=== PATIENT | female | born 1965 | race Caucasian/White ===

== ENCOUNTER 2021-03-12 08:00 | Outpatient (CLI) | payer OTHER | END 2021-03-12 23:59 | LOC: LAB 08:00 | PROVIDERS: ATTEND Family Medicine | DX: R30.0 Dysuria (principal) | CPT/HCPCS: 87086; 87181 ==

== ENCOUNTER 2021-05-27 16:09 | Outpatient (CLI) | payer SELFPAY ==
--- NOTE | 2021-05-27 19:30 | XRAY Report ---
PROCEDURE: Lumbar Spine 2 View INDICATIONS: TRAUMA TO PRIOR SURGERY FUSION TECHNIQUE: 2 views of the lumbar spine were acquired. COMPARISON: None. FINDINGS: Bones: Vertebral body alignment is maintained. Normal bone mineralization. There is a L4-5 and L5-S1 discectomy and fusion with posterior bora and screw instrumentation. L3-4 disc space narrowing and hyp ertrophic facet joint noted. Soft tissues: Overlying bowel gas pattern is normal. No suspicious soft tissue calcifications. Jan gical clips present in the right upper quadrant IMPRESSION: L4-5 and L5-S1 discectomy and fusion with posterior bora and screw instrumentation in good position. N o evidence of hardware failure or loosening. Reviewed by: Vjiay Raphael MD on 05/27/2021 6:29 PM [place] Approved by: Vijay Raphael MD on 05/27/2021 6:29 PM [facility] Station ID: [id number]
== END 2021-05-27 16:10 | disposition home or self-care (01) ==
LOC: DI 16:09
PROVIDERS: ATTEND Student in an Organized Health Care Education/Training Program
DX: S39.92XA Unspecified injury of lower back, initial encounter (principal); Z98.1 Arthrodesis status

== ENCOUNTER 2021-06-12 18:14 | Emergency (ER) | payer OTHER ==
--- NOTE | 2021-06-12 18:57 | ED Physician Documentation ---
History of Present Illness - Stated complaint Stated Complaint: LEFT ARM NUMBNESS CHEST PAIN - Chief complaint Chief Complaint: Cardiac - Additonal information Additional information: 56-year-old female presents emergency department for evaluation of worsening left-sided chest pain and pressure. Reports that for a long time she has been having intermittent palpitations and at one point she was referred for Holter monitor though due to the pandemic concerns that did not get completed. Her last 24 hours she has been having more frequent palpitations with chest pain and pressure. She is also endorsing left arm numbness below the elbow. 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 Non-smoker. No history of hypertension. Review of Systems Constitutional: denies: Fever, Chills Throat: reports: Reviewed and negative Cardiac: reports: Chest pain / pressure, Palpitations. denies: Pedal edema, Calf pain Respiratory: denies: Dyspnea, Cough, Hemoptysis, Wheezing GI: reports: Reviewed and negative : reports: Reviewed and negative Skin: reports: Reviewed and negative Musculoskeletal: denies: Neck pain Neurologic: reports: Numbness (Left arm below the elbow) PD PAST MEDICAL HISTORY - Present Medications Home Medications: Ambulatory Orders Medication Instructions Recorded Confirmed Budesonide [Pulmicort] 0.5 mg IH 06/12/21 DULoxetine [Cymbalta] 30 mg PO DAILY 06/12/21 06/12/21 Pantoprazole [Protonix] 40 mg PO 06/12/21 tiZANidine [Zanaflex] 06/12/21 - Allergies Allergies/Adverse Reactions: Allergies Allergy/AdvReac Type Severity Reaction Status Date / Time almond Allergy Anaphylaxis Verified 06/12/21 18:27 coconut Allergy Anaphylaxis Verified 06/12/21 18:27 corn Allergy Anaphylaxis Verified 06/12/21 18:27 Penicillins Allergy Rash Verified 06/12/21 18:27 strawberry Allergy Anaphylaxis Verified 06/12/21 18:27 wheat Allergy Anaphylaxis Verified 06/12/21 18:27 codeine AdvReac Nausea Verified 06/12/21 18:27 PD ED PE EXPANDED - General General: Alert, No acute distress, Other (Obese) - Cardiac Cardiac: Regular Rate, Radial strong equal, Pedal strong equal, Cap refill < 2 sec. No: Murmur Present - Respiratory Respiratory: Clear to ausultation alexander. No: Distress, Labored - Abdomen Abdomen: Normal Bowel sounds. No: Tender to palpation - Derm Derm: Normal color, Warm and dry. No: Rash - Extremities Extremities: Normal. No: Deformity, Tenderness - Neuro Neuro: Alert and Oriented X 3, CNII-XII intact, Normal gait, Normal finger nose, Normal speech - GCS Eye Opening: Spontaneous Motor: Obeys Commands Verbal: Oriented Total: 15 Results - Vitals Vitals: Vital Signs - 24 hr 06/12/21 06/12/21 06/12/21 18:20 18:25 20:29 Temperature 36.4 C L 36.5 C Heart Rate 72 72 74 Respiratory 14 14 15 Rate Blood Pressure 143/71 H 143/71 H 121/63 O2 Saturation 97 97 98 Oxygen O2 Source Room air - EKG (time done) 1839 Rate: Rate (enter#) (73) Rhythm: NSR Lowpoint: Normal QRS: Low voltage Ischemia: Normal ST segments Compare to prior EKG: Old EKG unavailable Computer interpretation: Agree with computer - Labs Labs: Laboratory Tests 06/12/21 06/12/21 06/12/21 19:01 19:01 19:01 WBC 9.1 RBC 4.73 Hgb 12.9 Hct 39.3 MCV 83.1 MCH 27.3 MCHC 32.8 RDW 12.6 Plt Count 254 MPV 9.8 Neut # (Auto) 5.2 Lymph # (Auto) 2.7 [place] # (Auto) 0.8 Eos # (Auto) 0.3 Baso # (Auto) 0.1 Absolute Nucleated RBC 0.00 Nucleated RBC % 0.0 Sodium 135 Potassium 4.4 Chloride 100 L Carbon Dioxide 27 Anion Gap 8.0 BUN 18 Creatinine 0.8 Estimated GFR (MDRD) 74 L Glucose 101 H Calcium 9.7 Total Bilirubin 0.6 AST 21 ALT 12 Alkaline Phosphatase 52 Troponin I High Sens 3.3 Total Protein 6.8 Albumin 3.9 Globulin 2.9 Albumin/Globulin Ratio 1.3 Lipase 28 - Rads (name of study) cxr Radiology: Final report received (No acute cardiopulmonary process) PD MEDICAL DECISION MAKING - ED course Complexity details: reviewed results, re-evaluated patient, considered differential, d/w patient ED course: 56-year-old female presents emergency department for evaluation of chest pain and pressure that began this morning. She has a history of Ehler Danlos but no history of hypertension or tobacco use. She has reported that she often has palpitations. At one point around a year ago she was to obtain a Holter monitor but failed to follow through with this. No previous history of coronary artery disease. Screening chest x-ray without acute focal findings. EKG is sinus rhythm without ischemia. Screening labs are also unremarkable. Her heart score is 2. She should certainly be referred for outpatient stress test and echocardiogram as an outpatient. Emergent return precautions were discussed for worsening symptoms. Departure - Departure Disposition: Home, Self Care Clinical Impression: Left-sided chest pain, Arm numbness left Condition: Stable Record reviewed to determine appropriate education?: Yes Follow-Up: SASKIA PARRA PA [Primary Care Provider] - Comments: Nazanin you are seen today in the ER for some numbness in your left lower arm as well as left-sided chest pain and pressure. Your chest x-ray is normal. Your EKG is also normal for age. Your screening labs including blood count, blood chemistry and your troponin are all essentially normal. It is important that you discuss this ED visit with your primary care provider. Because you have been describing palpitations it is important that you get rereferred for a Holter monitor. But you should also get referred for a stress test and an echocardiogram as an outpatient. If at any point you have worsening symptoms, sudden severe chest pain or shortness of air then please return immediately to the ER for a second evaluation.
[2021-06-12 19:08] LABS: BASOPHILS # (AUTO) 0.1 10^3/uL (0.0-0.1); BASOPHILS % (AUTO) 1.2 %; EOSINOPHILS # (AUTO) 0.3 10^3/uL (0.0-0.7); EOSINOPHILS % (AUTO) 2.7 %; HCT - HEMATOCRIT 39.3 % (37.0-47.0); HGB - HEMOGLOBIN 12.9 g/dL (12.0-16.0); LYMPHOCYTES # (AUTO) 2.7 10^3/uL (1.5-3.5); LYMPHOCYTES % (AUTO) 29.9 %; MEAN CORPUSCULAR HEMOGLOBIN 27.3 pg (27.0-31.0); MEAN CORPUSCULAR HGB CONC 32.8 g/dL (32.0-36.0); MEAN CORPUSCULAR VOLUME 83.1 fL (81.0-99.0); MEAN PLATELET VOLUME 9.8 fL (7.9-10.8); MONOCYTES # (AUTO) 0.8 10^3/uL (0.0-1.0); NEUTROPHILS # (AUTO) 5.2 10^3/uL (1.5-6.6); NEUTROPHILS % (AUTO) 56.7 %; PLT - PLATELET COUNT 254 10^3/uL (130-450); RED BLOOD COUNT 4.73 10^6/uL (4.20-5.40); RED CELL DISTRIBUTION WIDTH 12.6 % (12.0-15.0); WHITE BLOOD COUNT 9.1 x10^3/uL (4.8-10.8)
[2021-06-12 19:30] LABS: ALBUMIN 3.9 g/dL (3.2-5.5); ALBUMIN/GLOBULIN RATIO 1.3 (1.0-2.2); BILIRUBIN,TOTAL 0.6 mg/dL (0.2-1.0); CALCIUM 9.7 mg/dL (8.5-10.3); CREATININE 0.8 mg/dL (0.4-1.0); POTASSIUM 4.4 mmol/L (3.5-5.0); TOTAL PROTEIN 6.8 g/dL (6.7-8.2)
--- OUTSIDE RECORDS SUMMARY | 2021-06-12 19:41 | EXTERNAL MEDICAL SUMMARY RPT | Continuity of Care Document ---
:1965 Author Organization [facility] Address [address] [place] [address] Phone Care Team Providers Name Role Phone Franci HERNANDEZ Unavailable Unavailable Allergies No information. Encounters No information. Medications date description facility [id number] fluconazole All Problems Results No information.
--- NOTE | 2021-06-12 19:57 | XRAY Report ---
PROCEDURE: Chest 1 View X-Ray INDICATIONS: Chest Pain TECHNIQUE: One view of the chest was acquired. COMPARISON: None FINDINGS: Surgical changes and devices: None. Lungs and pleura: No pleural effusions or pneumothorax. Lungs are clear. Mediastinum: Mediastinal contours appear normal. Heart size is normal. Bones and chest wall: No suspicious bony lesions. Overlying soft tissues appear unremarkable. IMPRESSION: No acute cardiopulmonary disease process. Reviewed by: Jerrica Luke MD, PhD on 06/12/2021 7:55 PM PDT Approved by: Jerrica Luke MD, PhD on 06/12/2021 7:55 PM PDT Station ID: [id number]
[2021-06-12 20:32] VITALS: BP 121/63
== END 2021-06-12 20:33 | disposition home or self-care (01) ==
LOC: ED 18:14
DX: R07.89 Other chest pain (principal); R20.0 Anesthesia of skin
CPT/HCPCS: 36415; 80053; 83690; 84484; 85025; 93005; 99284

== ENCOUNTER 2021-08-12 16:34 | Outpatient (CLI) | payer OTHER ==
--- NOTE | 2021-08-13 09:54 | XRAY Report ---
PROCEDURE: Hip w/Pelvis 2-3V RT INDICATIONS: RIGHT HIP PAIN TECHNIQUE: AP pelvis with lateral view(s) of the right hip(s). COMPARISON: None. FINDINGS: Bones: No fractures or dislocations. Pelvic ring appears intact. No suspicious bony lesions. Part ially imaged lower lumbar fixation hardware. Soft tissues: The visualized bowel gas pattern is normal. No suspicious soft tissue calcifications. IMPRESSION: Intact pelvis and right hip. Reviewed by: Zelda Tubbs MD on 08/13/2021 9:52 AM PDT Approved by: Zelda Tubbs MD on 08/13/2021 9:52 AM PDT Station ID: [id number]
== END 2021-08-12 16:35 | disposition home or self-care (01) ==
LOC: DI 16:34
PROVIDERS: ATTEND Internal Medicine
DX: M25.551 Pain in right hip (principal)

== ENCOUNTER 2021-09-28 21:42 | Emergency (ER) | payer OTHER ==
--- NOTE | 2021-09-28 22:54 | ED Physician Documentation ---
History of Present Illness - Stated complaint Stated Complaint: MUSCLES SPASMS,NAUSEA - Chief complaint Chief Complaint: General - History obtained from History obtained from: Patient - History of Present Illness Timing: Today Pain level now: 5 Improved by: no ameliorating factors Worsened by: no exacerbating factors - Additonal information Additional information: c/o generalized muscle spasms and myalgias, gradual onset this afternoon. She says she thinks she is dehydrated due to not drinking enough fluids today. nausea but no vomiting. mild diarrhea. Patient says she has had similar symptoms in the past which was attributed to gastroparesis, possibly associated with Toi-Danlos syndrome. She says she had standing orders at an ED or outpatient clinic in [place] (where she had been living) for IV fluids for these symptoms, but that it has been several years since her last episode. Review of Systems Constitutional: reports: Reviewed and negative Cardiac: reports: Reviewed and negative Respiratory: reports: Reviewed and negative GI: reports: Abdominal Pain, Nausea, Diarrhea. denies: Abdominal Swelling, Vomiting, Constipation : denies: Dysuria, Frequency PD PAST MEDICAL HISTORY - Past Medical History Past Medical History: Yes Other Past Medical History: toi-danlos - Present Medications Home Medications: Ambulatory Orders Medication Instructions Recorded Confirmed Budesonide [Pulmicort] 0.5 mg IH 06/12/21 DULoxetine [Cymbalta] 30 mg PO DAILY 06/12/21 06/12/21 Pantoprazole [Protonix] 40 mg PO 06/12/21 tiZANidine [Zanaflex] 06/12/21 Metoclopramide [Reglan] 10 mg PO Q6H PRN #20 tablet 09/29/21 - Allergies Allergies/Adverse Reactions: Allergies Allergy/AdvReac Type Severity Reaction Status Date / Time almond Allergy Anaphylaxis Verified 09/28/21 21:47 coconut Allergy Anaphylaxis Verified 09/28/21 21:47 corn Allergy Anaphylaxis Verified 09/28/21 21:47 Penicillins Allergy Rash Verified 09/28/21 21:47 strawberry Allergy Anaphylaxis Verified 09/28/21 21:47 wheat Allergy Anaphylaxis Verified 09/28/21 21:47 codeine AdvReac Nausea Verified 09/28/21 21:47 - Living Situation Living Arrangement: reports: At home PD ED PE NORMAL - Vitals Vital signs reviewed: Yes - General General: Alert and oriented X 3, Well developed/nourished, Other (appears to be in mild painful discomfort) - Neck Neck: Supple, no meningeal sign - Cardiac Cardiac: RRR, No murmur - Respiratory Respiratory: No respiratory distress, Clear bilaterally - Abdomen Abdomen: Normal bowel sounds, Soft, Non tender, Non distended - Derm Derm: Normal color, Warm and dry Results - Vitals Vitals: Oxygen O2 Source Room air - Labs Labs: Laboratory Tests 09/28/21 09/28/21 23:30 23:30 WBC 9.6 RBC 5.04 Hgb 14.0 Hct 43.0 MCV 85.3 MCH 27.8 MCHC 32.6 RDW 13.1 Plt Count 282 MPV 9.7 Neut # (Auto) 5.3 Lymph # (Auto) 2.9 [place] # (Auto) 1.0 Eos # (Auto) 0.3 Baso # (Auto) 0.1 Absolute Nucleated RBC 0.00 Nucleated RBC % 0.0 Sodium 137 Potassium 4.1 Chloride 100 L Carbon Dioxide 30 Anion Gap 7.0 BUN 16 Creatinine 0.8 Estimated GFR (MDRD) 74 L Glucose 103 H Calcium 10.2 Total Bilirubin 0.4 AST 25 ALT 13 Alkaline Phosphatase 65 Total Protein 7.5 Albumin 4.2 Globulin 3.3 Albumin/Globulin Ratio 1.3 Lipase 31 PD MEDICAL DECISION MAKING - ED course Complexity details: reviewed results, re-evaluated patient, considered differential, d/w patient Departure - Departure Disposition: 01 Home, Self Care Clinical Impression: Nausea & vomiting Condition: Good Instructions: ED Nausea Vomiting Follow-Up: SASKIA PARRA PA [Primary Care Provider] - Prescriptions: Metoclopramide [Reglan] 10 mg PO Q6H PRN #20 tablet PRN Reason: Nausea / Vomiting Comments: The cause of your symptoms is not apparent at this time; the results of tonight's tests are unremarkable. Follow up with your primary care provider in 2-3 days if the symptoms have not resolved. Discharge Date/Time: 09/29/21 02:30
[2021-09-28] MEDS ORDERED: SODIUM CHLORIDE 0.9% 1,000 ML IV STA (23:04)
[2021-09-28 23:46] LABS: BASOPHILS # (AUTO) 0.1 10^3/uL (0.0-0.1); BASOPHILS % (AUTO) 1.4 %; EOSINOPHILS # (AUTO) 0.3 10^3/uL (0.0-0.7); EOSINOPHILS % (AUTO) 2.8 %; LYMPHOCYTES # (AUTO) 2.9 10^3/uL (1.5-3.5); LYMPHOCYTES % (AUTO) 29.9 %; MEAN CORPUSCULAR HEMOGLOBIN 27.8 pg (27.0-31.0); MEAN CORPUSCULAR HGB CONC 32.6 g/dL (32.0-36.0); MEAN CORPUSCULAR VOLUME 85.3 fL (81.0-99.0); MEAN PLATELET VOLUME 9.7 fL (7.9-10.8); MONOCYTES % (AUTO) 10.4 %; NEUTROPHILS # (AUTO) 5.3 10^3/uL (1.5-6.6); NEUTROPHILS % (AUTO) 55.2 %; PLT - PLATELET COUNT 282 10^3/uL (130-450); RED BLOOD COUNT 5.04 10^6/uL (4.20-5.40); RED CELL DISTRIBUTION WIDTH 13.1 % (12.0-15.0); WHITE BLOOD COUNT 9.6 x10^3/uL (4.8-10.8)
[2021-09-28 23:55] LABS: ALBUMIN 4.2 g/dL (3.2-5.5); ALBUMIN/GLOBULIN RATIO 1.3 (1.0-2.2); BILIRUBIN,TOTAL 0.4 mg/dL (0.2-1.0); CALCIUM 10.2 mg/dL (8.5-10.3); CREATININE 0.8 mg/dL (0.4-1.0); POTASSIUM 4.1 mmol/L (3.5-5.0); TOTAL PROTEIN 7.5 g/dL (6.7-8.2)
[2021-09-29] MEDS ORDERED: ONDANSETRON 4 MG/2 ML VIAL IVP STA (00:04)
[2021-09-29] MEDS ORDERED: SODIUM CHLORIDE 0.9% 1,000 ML IV STA (00:36)
[2021-09-29] MEDS ORDERED: METOCLOPRAMIDE 10 MG/2 ML VIAL IVP STA (01:25)
[2021-09-29 02:07] VITALS: BP 155/79
== END 2021-09-29 02:30 | disposition home or self-care (01) ==
LOC: ED 21:42
DX: R11.2 Nausea with vomiting, unspecified (principal)
CPT/HCPCS: 36415; 80053; 83690; 85025; 96361; 96374; 96375; 99282; 99283; J2765

== ENCOUNTER 2021-10-21 08:00 | Outpatient (CLI) | payer OTHER | END 2021-10-21 23:59 | disposition home or self-care (01) | LOC: LAB.N 08:00 | PROVIDERS: ATTEND Physician Assistant Medical | DX: R30.0 Dysuria (principal) | CPT/HCPCS: 87086 ==

== ENCOUNTER 2021-12-02 08:00 | Outpatient (CLI) | payer OTHER ==
--- NOTE | 2021-12-03 08:20 | XRAY Report ---
PROCEDURE: Elbow 3 View RT INDICATIONS: ELBOW PAIN TECHNIQUE: 3 views of the elbow were acquired. COMPARISON: Elbow radiographs 10/31/2021 FINDINGS: Bones: Similar alignment of the previously demonstrated mildly displaced radial head fracture. No def inite bony callus visualized. No definite new fracture. Soft tissues: Previous elbow joint effusion is decreased or resolved. No suspicious soft tissue calc ifications. IMPRESSION: Similar alignment of the previously demonstrated mildly displaced radial head fracture. Reviewed by: Harry Riggs MD on 12/03/2021 8:19 AM PDT Approved by: Harry Riggs MD on 12/03/2021 8:19 AM PDT Station ID: [id number]
== END 2021-12-02 23:59 | disposition home or self-care (01) ==
LOC: DI.WOS 08:00
PROVIDERS: ATTEND Physician Assistant Surgical
DX: S52.121D Displaced fracture of head of right radius, subsequent encounter for closed fracture with routine healing (principal)

== ENCOUNTER 2021-12-27 08:00 | Outpatient (CLI) | payer OTHER | END 2021-12-27 23:59 | disposition home or self-care (01) | LOC: LAB.N 08:00 | PROVIDERS: ATTEND Nurse Practitioner | DX: N39.0 Urinary tract infection, site not specified (principal) | CPT/HCPCS: 87077; 87086; 87181 ==

== ENCOUNTER 2021-12-30 08:00 | Outpatient (CLI) | payer OTHER ==
--- NOTE | 2021-12-30 18:01 | XRAY Report ---
PROCEDURE: Elbow 3 View RT INDICATIONS: RIGHT ELBOW FRACTURE TECHNIQUE: 3 views of the elbow were acquired. COMPARISON: Views of the elbow dated 12/02/2021. FINDINGS: Bones: Intra-articular radial head fracture is redemonstrated. Fracture fragments are in unchanged an atomic alignment. No callus is yet visualized. Soft tissues: No elbow joint effusion. No suspicious soft tissue calcifications. IMPRESSION: Stable radial head fracture. Reviewed by: Argelia Bearden MD on 12/30/2021 5:59 PM PDT Approved by: Argelia Bearden MD on 12/30/2021 5:59 PM PDT Station ID: [id number]
== END 2021-12-30 23:59 | disposition home or self-care (01) ==
LOC: DI.WOS 08:00
PROVIDERS: ATTEND Physician Assistant Surgical
DX: S52.124D Nondisplaced fracture of head of right radius, subsequent encounter for closed fracture with routine healing (principal)

== ENCOUNTER 2022-03-16 13:07 | Outpatient (CLI) | payer OTHER ==
--- NOTE | 2022-03-17 10:45 | Mammography Report ---
BILATERAL DIGITAL SCREENING MAMMOGRAM 3D/2D: 03/16/2022 CLINICAL: Routine screening. Comparison is made to exam dated: 07/06/2020 mammogram - [place]. There are scattered areas of fibroglandular density in both breasts (category b / 25%-50% glandular t issue). No significant masses, calcifications, or other findings are seen in either breast. There has been no significant interval change. IMPRESSION: NEGATIVE There is no mammographic evidence of malignancy. A 1 year screening mammogram is recommended. Based on the Tyrer Cuzick model (a risk assessment model) the patients lifetime risk is 7.3% and her 10 year risk is 2.7%. According to the ACR, ACS, and NCCN guidelines, an annual breast MRI exam edgar g with mammogram is recommended if the patients lifetime risk is 20% or greater. This exam was interpreted at Station ID: [id number]. NOTE: For mammograms, a report in lay terms will be sent to the patient. Approximately 15% of breast malignancies will not be visualized mammographically. In the management of a palpable breast mass, a negative mammogram must not discourage biopsy of a clinically suspicious lesion. Electronically Signed By: Yaron Saucedo M.D. acr/penrad:03/16/2022 17:16:24 ACR BI-RADS Category 1: Negative 3341F PARENCHYMAL PATTERN: (A) - The breast(s) demonstrate(s) scattered fibroglandular densities. BI-RADS CATEGORY: (1) - 1 RECOMMENDATION: (ANNUAL) - Recommend routine annual screening mammography. [id number] 1 year screening LATERALITY: (B)
== END 2022-03-16 13:08 | disposition home or self-care (01) ==
LOC: DI 13:07
PROVIDERS: ATTEND Internal Medicine
DX: Z12.31 Encounter for screening mammogram for malignant neoplasm of breast (principal)

== ENCOUNTER 2022-05-04 12:45 | Outpatient (CLI) | payer OTHER ==
--- NOTE | 2022-05-04 16:08 | XRAY Report ---
PROCEDURE: Shoulder 3 View RT INDICATIONS: RIGHT SHOULDER PAIN TECHNIQUE: 4 views of the shoulder were acquired. COMPARISON: None. FINDINGS: Bones: No fractures or dislocations. No suspicious bony lesions. Mild degenerative joint disease i n acromioclavicular and glenohumeral joint. Visualized ribs appear intact. Soft tissues: No suspicious soft tissue calcifications. IMPRESSION: Mild degenerative joint disease. Reviewed by: Cesar Burt MD on 05/04/2022 4:07 PM [facility] Approved by: Cesar Burt MD on 05/04/2022 4:07 PM [facility] Station ID: [id number]
== END 2022-05-04 12:46 | disposition home or self-care (01) ==
LOC: DI.WOS 12:45
PROVIDERS: ATTEND Orthopaedic Surgery
DX: M19.011 Primary osteoarthritis, right shoulder (principal)

== ENCOUNTER 2022-08-20 16:07 | Outpatient (CLI) | payer OTHER ==
[2022-08-20 16:23] LABS: CALCIUM, IONIZED 1.26 mmol/L (1.15-1.33); VBG PH 7.322 (7.31-7.41)
[2022-08-20 16:52] LABS: THYROID STIMULATING HORMONE 1.77 uIU/mL (0.34-5.60)
== END 2022-08-20 16:08 | disposition home or self-care (01) ==
LOC: LAB 16:07
PROVIDERS: ATTEND Internal Medicine
DX: E83.52 Hypercalcemia (principal); F32.A Depression, unspecified; R53.83 Other fatigue; M79.7 Fibromyalgia; R63.5 Abnormal weight gain; Z86.39 Personal history of other endocrine, nutritional and metabolic disease
CPT/HCPCS: 36415; 82330; 82607; 83970; 84443; 86376

== ENCOUNTER 2022-10-22 16:41 | Outpatient (CLI) | payer OTHER ==
--- NOTE | 2022-10-23 17:03 | XRAY Report ---
PROCEDURE: Chest 2 View X-Ray INDICATIONS: DYSPNEA TECHNIQUE: 2 views of the chest were acquired. COMPARISON: Chest x-ray 06/12/2021 FINDINGS: Surgical changes and devices: Cholecystectomy clips and partially visualized thoracolumbar fixation rods. Lungs and pleura: No pleural effusions or pneumothorax. Lungs are clear. Mediastinum: Mediastinal contours appear normal. Heart size is normal. Bones and chest wall: No suspicious bony lesions. Overlying soft tissues appear unremarkable. IMPRESSION: No acute cardiopulmonary process. Reviewed by: Denise Xiong MD on 10/23/2022 5:01 PM PDT Approved by: Denise Xiong MD on 10/23/2022 5:01 PM PDT Station ID: [id number]
== END 2022-10-22 16:42 | disposition home or self-care (01) ==
LOC: DI 16:41
PROVIDERS: ATTEND Internal Medicine
DX: R06.00 Dyspnea, unspecified (principal)

== ENCOUNTER 2022-11-03 16:16 | Outpatient (CLI) | payer OTHER | END 2022-11-03 16:17 | disposition home or self-care (01) | LOC: RT 16:16 | PROVIDERS: ATTEND Internal Medicine | DX: R06.00 Dyspnea, unspecified (principal) | CPT/HCPCS: 94060 ==

== ENCOUNTER 2023-09-22 10:26 | Outpatient (CLI) | payer OTHER ==
--- NOTE | 2023-09-23 08:42 | Mammography Report ---
BILATERAL DIGITAL SCREENING MAMMOGRAM 3D/2D: 09/22/2023 CLINICAL: Routine screening. Comparison is made to exams dated: 03/16/2022 mammogram - [facility] and 07/06/2020 mammogram - [place]. There are scattered areas of fibroglandular density in both breasts (category b / 25%-50% glandular t issue). No significant masses, calcifications, or other findings are seen in either breast. There has been no significant interval change. IMPRESSION: NEGATIVE There is no mammographic evidence of malignancy. A 1 year screening mammogram is recommended. Based on the Tyrer Cuzick model (a risk assessment model) the patient's lifetime risk is 7.0% and her 10 year risk is 2.8%. According to the ACR, ACS, and NCCN guidelines, an annual breast MRI exam edgar g with mammogram is recommended if the patient's lifetime risk is 20% or greater. This exam was interpreted at Station ID: [id number]. NOTE: For mammograms, a report in lay terms will be sent to the patient. Approximately 15% of breast malignancies will not be visualized mammographically. In the management of a palpable breast mass, a negative mammogram must not discourage biopsy of a clinically suspicious lesion. Electronically Signed By: Refugio kowalski/omar:09/22/2023 11:37:42 letter sent: No_Letter ACR BI-RADS Category 1: Negative 3341F PARENCHYMAL PATTERN: (A) - The breast(s) demonstrate(s) scattered fibroglandular densities. BI-RADS CATEGORY: (1) - 1 RECOMMENDATION: (ANNUAL) - Recommend routine annual screening mammography. [id number] 1 year screening LATERALITY: (B)
== END 2023-09-22 10:27 | disposition home or self-care (01) ==
LOC: DI.N 10:26
PROVIDERS: ATTEND Internal Medicine
DX: Z12.31 Encounter for screening mammogram for malignant neoplasm of breast (principal); R92.323 Mammographic fibroglandular density, bilateral breasts

== ENCOUNTER 2023-10-04 09:51 | Outpatient (CLI) | payer OTHER ==
--- NOTE | 2023-10-04 20:29 | SLEEP CARE CONSULTATION ---
Information from patient questionnaire entered by Susi Henry. I have reviewed and concur with the information entered by Susi Henry. This document represents the service I personally performed and the decisions made by me, Santi Fuentes MD, [facility]. History of Present Illness Service Date and Time: 10/04/2023 0951 Reason for Visit: New patient Chief Complaint: reports: Unrefreshed sleep, Excessive daytime sleepiness Date of Onset: 20YRS Usual bedtime: 0365-9926 Time it takes to fall asleep: 30-45MINS Snores at night: No Observed to quit breathing while asleep: No Sleeps alone due to snoring: No Number of times waking at night: 1-2 Reasons for waking at night: reports: Bathroom, Other (NOISE) Toss, Turn, or Twitch while sleeping: No Recalls having dreams: Yes Usually gets out of bed at: [id number] Feels refreshed in the morning: No Morning headache: Yes Sleepy or fatigued during the day: Yes Ever fallen asleep while driving: No Takes day naps: No Prior sleep studies: No Additional HPI information: I have the pleasure of seeing Ms. Martinez today regarding the possibility of her having obstructive sleep apnea. As you know, she is a 58-year-old lady who complains of unrefreshed sleep, persistent fatigue, and excessive daytime sleepiness for about 20 years. She said she had a sleep study about 20 years ago that was negative. She had an overnight pulse oximetry about 4 years ago that showed oxygen saturation dropping down into an abnormal level. The patient tells me that she normally goes to bed around 11 pm - midnight, and it takes her approximately 30 - 45 minutes to fall asleep. She has not been told that she snores loudly or irregularly at night. She has never been observed to stop breathing in her sleep. Her sleeps in the same bed. She can recall waking up on the average of 1 - 2 times during the night. Most of the time she wakes up because of having to use the bathroom. She has never awakened because of her own snoring, choking, or having to gasp for air. There is not a lot of tossing and turning in her sleep. No somniloquy (sleep talking) or somnambulism (sleep walking). Generally, she can recall having dreams. In the morning she usually gets up out of the bed around 6 - 7 a.m. not feeling refreshed nor rested. She usually does have a morning headache. During the day she complains of feeling sleepy and fatigued. Her score on [place] Sleepiness Scale is 16 out of 24. She never has fallen asleep while driving nor has had any accident due to sleepiness. She usually does not take naps during the day. Upon falling asleep during the day she reports having dreams, but only the naps are long. She has never had sleep paralysis, experienced cataplexy or symptoms of restless leg syndrome. She reports having impaired concentration during the day. - Parasomnia Symptoms Ever been unable to move upon waking from sleep: No Walks in sleep: No Talks in sleep: No Ever acted out dreams in sleep: No Ever felt weak in the knees when startled or emotional: Yes Bothered by creepy, crawly, restless sensations in legs: No Problems with memory or concentration: Yes Subjective Initial [place] Sleepiness Scale score: 16 (09/29/23) Past Medical History Past Medical History: reports: Arthritis, Insulin resistance, Fibromyalgia, Anxiety, Asthma, Depression, GERD, Attention deficit Social History The patient's occupation is a [employer]. Patient is and lives in . Have you smoked in the past 12 months: No Alcohol use: No Caffeine use: Yes Caffeine amount and frequency: 1 16OZ 3-4X WEEK Family History Family history of sleep disordered breathing: No Allergies and Home Medications Known drug allergies: Yes ( LISTED) Drug allergies reviewed: Yes Home medication list reviewed: Yes Allergy and home medication list: Allergies almond Allergy (Verified 09/28/23 07:48) Anaphylaxis coconut Allergy (Verified 09/28/23 07:48) Anaphylaxis corn Allergy (Verified 09/28/23 07:48) Anaphylaxis Penicillins Allergy (Verified 09/28/23 07:48) Rash strawberry Allergy (Verified 09/28/23 07:48) Anaphylaxis wheat Allergy (Verified 09/28/23 07:48) Anaphylaxis codeine Adverse Reaction (Verified 09/28/23 07:48) Nausea Review of Systems Weight gain over past 5 years: 25 Weight loss over past 5 years: 30 Cardiovascular: denies: high blood pressure, palpitations, chest pain, irregular heart rate or pulse, leg or foot swelling, have to sleep sitting up, other Respiratory: reports: shortness of breath, wheeze Gastrointestinal: reports: heartburn. denies: difficulty swallowing, nausea, vomitting, diarrhea, abdominal pain, other Urinary: denies: incontinence, frequency, urgency, impotence, other Neurological: reports: head trauma, gait or balance problems Psychiatric: reports: Attention Deficit Hyperactivity, anxiety, depression, chato strophobia Ear/Nose/Throat: reports: nasal congestion, sinus problems, injury to nose, tonsillectomy, wisdom teeth removed Endocrine: reports: sluggishness, too hot or cold Musculoskeletal: reports: joint pain, neck pain, back pain, muscle pain or cramping Immunologic: reports: allergies to food or environment Physical Exam Vital signs obtained and entered by: SUSI Gamboa MA Blood Pressure: 161/84 (RIGHT ARM) Cuff size: long Heart Rate: 80 O2 Saturation: 99 Height: 5 ft 8 in Weight: 249 lb Body Mass Index: 37.8 BMI Classification: Obese Neck circumference: 14 Mood/affect: normal HEENT: No craniofacial malformation Nostrils: patent to airflow Turbinates: normal Septum: midline Mouth and throat: narrow oropharynx Soft palate: long Hard palate: normal Uvula: normal Tongue: normal in size Tonsils: small Chin and jaw: normal size and position Neck: normal w/o lymphadenopathy or thyromegaly Heart: regular rate and rhythm Lungs: clear bilaterally Extremities: no edema or clubbing Neurologic: intact Impression and Plan IMPRESSION: 1. Fatigue and hypersomnia, despite adequate night sleep. Therefore, sleep disrupting conditions should be ruled out. The patient does have several other factors that could be responsible for her fatigue. Narrow oropharynx and obesity are common predisposing factors for obstructive sleep apnea-hypopnea syndrome. I recommend proceeding to polysomnography to confirm the diagnosis and to assess severity. I informed the patient of what the sleep studies involve and after some discussion, she agreed to proceed. Plan: 1. Schedule polysomnography and return in 1 to 2 weeks after the study to discuss result and initiate therapy. 2. Avoid long distance driving or when feeling sleepy. 3. Attempt to lose weight. Counseling Topics: Weight control Follow up with Sleep Care in: 1-2 months Visit Type: In Office Time Spent with Patient (minutes): 15 Provider Statement: I spent 100% of the Face to Face Visit with the patient with greater than 50% spent counseling the patient and coordination of care.
[2023-10-04 20:35] VITALS: BP 161/84; O2SAT 99
== END 2023-10-04 09:52 | disposition home or self-care (01) ==
LOC: SC 09:51
PROVIDERS: ATTEND Internal Medicine Pulmonary Disease
DX: G47.10 Hypersomnia, unspecified (principal); G47.8 Other sleep disorders; R53.83 Other fatigue; E66.9 Obesity, unspecified; Z68.37 Body mass index [BMI] 37.0-37.9, adult; F51.04 Psychophysiologic insomnia; R41.89 Other symptoms and signs involving cognitive functions and awareness; F32.A Depression, unspecified
CPT/HCPCS: 99202; 99212

== ENCOUNTER 2023-10-11 13:04 | Outpatient (CLI) | payer OTHER ==
[2023-10-11 19:14] LABS: CLARITY,URINE CLOUDY (CLEAR)
[2023-10-11 20:25] LABS: BACTERIA,URINE Many /HPF (None Seen); SQUAMOUS EPITHELIAL CELL,UR NONE SEEN (<= Few); WBC,URINE >25 /HPF (0-5)
== END 2023-10-11 13:05 | disposition home or self-care (01) ==
LOC: LAB.N 13:04
PROVIDERS: ATTEND Internal Medicine
DX: R39.9 Unspecified symptoms and signs involving the genitourinary system (principal)
CPT/HCPCS: 81001; 81003; 87086

== ENCOUNTER 2023-11-10 20:32 | Outpatient (CLI) | payer OTHER | END 2023-11-10 20:33 | disposition home or self-care (01) | LOC: SC 20:32 | PROVIDERS: ATTEND Internal Medicine Pulmonary Disease | DX: G47.33 Obstructive sleep apnea (adult) (pediatric) (principal); E66.9 Obesity, unspecified; Z68.37 Body mass index [BMI] 37.0-37.9, adult | CPT/HCPCS: 95810 ==

== ENCOUNTER 2023-11-19 11:09 | Outpatient (CLI) | payer OTHER ==
--- NOTE | 2023-11-19 11:46 | Sleep Patient Instructions ---
Sleep Center Visit Summary - Patient Visit Information Reason for Visit: Sleep study follow-up - Patient Instructions Instructions Attached: CPAP Additional Instructions: You are being started on CPAP therapy with pressure setting at 4-15 cmH2O. You will need to call the sleep care office to set up your follow up once you have your CPAP machine to check compliance and response to therapy at that time. You may call the office with any concerns about pressure feeling too low or too much for adjustment, if needed. You should contact DME supplier for any questions or concerns about mask or equipment. Please call office to schedule a follow up appointment in the sleep care office one month after obtaining new device. - Clinic Information Contact: [facility] [address] [place] [address] [email or web address] T: [phone]
--- NOTE | 2023-11-19 11:48 | SLEEP CARE CONSULTATION ---
Information from patient questionnaire entered by Susi Henry. I have reviewed and concur with the information entered by Susi Henry. This document represents the service I personally performed and the decisions made by me, Sonali Brown ARNP. History of Present Illness Service Date and Time: 11/19/2023 1109 Accompanied by: Spouse (Zak) Initial [place] Sleepiness Scale score: 16 Current [place] Sleepiness Scale score: 16 (11/19/23) Additional HPI information: LISA DALLAS returns with spouse for follow up and results of the recently performed polysomnography. The sleep study done on 11/10/2023 showed moderate obstructive sleep apnea with an average AHI of 20.4 and argenis oxygen saturation of 81%. I explained the pathophysiology behind obstructive sleep apnea. We then spent quite a bit of time discussing different treatment options. For mild obstructive sleep apnea, surgery and oral appliance are alternatives to nasal CPAP therapy but in moderate or severe cases, nasal CPAP is the most effective and reliable treatment. I reviewed the impact of weight changes on sleep apnea and strongly recommended losing weight. After some discussion, the patient opted to go with the nasal CPAP therapy. Nasal autoCPAP set at 4-15 cmH20 will be ordered with rationale explained. A manual titration study will be ordered if unable to find optimal pressure with office adjustments. I explained how CPAP machine works and what to expect when using the machine. Using CPAP every night in order to get used to it was emphasized. Patient advised to put CPAP mask on before getting into bed so as not to fall asleep without CPAP. To assist acclimation to CPAP use, it could also be used for a short time during day while reading or watching TV. The patient was instructed to call the CPAP supplier to discuss any mechanical problem that may occur. If the mask given is uncomfortable or is difficult to keep on through the night even with adjustment, contact the CPAP supplier as many will replace with another mask style if notified before 30 days. If snoring or perceives is not getting enough air or too much air from the machine, notify this office. Patient does not drink alcohol. Patient was cautioned about risks of drowsy driving until sleepiness symptoms resolve. Sleep Study - Results Type of Sleep Study: Polysomnography (COMPLETED 11/10/23) Prior sleep studies: No Polysomnography/Home Sleep Study results: IMPRESSION: The quality of the study is good. The patient had reduced sleep efficiency due to frequent awakenings in the first half of the night. The sleep architecture was abnormal for sleep fragmentation and reduced amount of time spent in REM sleep. Respiratory monitoring showed moderate obstructive sleep apnea-hypopnea (AHI = 20.4) associated with frequent arousals, oxyhemoglobin desaturation and mild hypoxia (argenis oxygen saturation of 82%). The patient slept mostly supine (supine AHI = 17.2; non- supine = 65.59). Snore was light to loud in intensity. There was no significant periodic leg movement of sleep. Cardiac rhythm was normal sinus rhythm with occasional sinus tachycardia (maximum heart rate during sleep = 107). No abnormal behavior (parasomnia) observed during the night. Allergies and Home Medications Known drug allergies: Yes (as listed) Drug allergies reviewed: Yes Home medication list reviewed: Yes (no changes) Allergy and home medication list: Allergies almond Allergy (Verified 11/19/23 11:10) Anaphylaxis coconut Allergy (Verified 11/19/23 11:10) Anaphylaxis corn Allergy (Verified 11/19/23 11:10) Anaphylaxis Penicillins Allergy (Verified 11/19/23 11:10) Rash strawberry Allergy (Verified 11/19/23 11:10) Anaphylaxis wheat Allergy (Verified 11/19/23 11:10) Anaphylaxis codeine Adverse Reaction (Verified 11/19/23 11:10) Nausea Review of Systems Review of systems same as previous: Yes (NO CHANGE) Physical Exam Vital signs obtained and entered by: SUSI Gamboa MA Blood Pressure: 142/86 (LEFT ARM) Cuff size: long Heart Rate: 77 O2 Saturation: 100 Height: 5 ft 8 in Weight: 247 lb 9.6 oz Body Mass Index: 37.6 BMI Classification: Obese Impression and Plan 1. Obstructive Sleep Apnea-Hypopnea Syndrome, moderate, with lowest oxygen saturation of 82%. Obviously this is the cause of the patients symptoms of unrefreshed sleep, and excessive daytime sleepiness. Positive pressure therapy could benefit insulin resistance, fibromyalgia, anxiety, depression, gastric reflux and attention deficit. As mentioned above, the patient will be started on nasal autoCPAP therapy with pressure set at 4-15 cmH2O. A manual titration study will be completed if unable to find optimal treatment pressure with office adjustments. Compliance guidelines also reviewed. A copy of compliance guidelines will be given for reference at check out. 2. Hypoxemia, mild, with a argenis oxygen saturation of 82% and 27.3 minutes spent under 90%. The baseline oxygen saturation was normal with an average oxygen saturation of 92%. 3. Obesity, unspecified. Currently patients BMI is 37.6. Obesity increases the risk of apnea, CPAP pressure requirements and overall health risks especially cardiovascular and diabetes. Thus patient is advised to lose weight. * Nasal auto CPAP therapy, pressure at 4-15 cmH2O. * Attempt to lose weight. * Avoid alcohol consumption near bedtime. * Avoid supine sleep until using CPAP. * The patient is again cautioned about driving until sleepiness completely resolves. * Return one month after CPAP obtained. I will assess response to therapy and compliance at that time. Counseling Topics: Sleeping position, Weight loss health impact Visit Type: In Office Time Spent with Patient (minutes): 21 Provider Statement: I spent 100% of the Face to Face Visit with the patient with greater than 50% spent counseling the patient and coordination of care.
[2023-11-19 12:04] VITALS: BP 142/86; O2SAT 100
== END 2023-11-19 11:10 | disposition home or self-care (01) ==
LOC: SC 11:09
PROVIDERS: ATTEND Nurse Practitioner Family
DX: G47.33 Obstructive sleep apnea (adult) (pediatric) (principal); R09.02 Hypoxemia; E66.9 Obesity, unspecified; Z68.37 Body mass index [BMI] 37.0-37.9, adult
CPT/HCPCS: 99212; 99213